=== PATIENT | male | born 1950 | race African-American/Black ===

== ENCOUNTER 2019-12-20 04:27 | Day surgery (SDC) | payer BC, OTHER ==
[2019-12-17 08:24] VITALS: BMI 24.3
[2019-12-20] MEDS ORDERED: MIDAZOLAM HCL 2 MG/2 ML SINGLE DOSE VIAL ONE (09:50)
--- NOTE | 2019-12-20 10:15 | OP ---
Operative Note - Note: Operative Date: 12/20/19 Pre-Operative Diagnosis: Left renal stone Operation: Left ESWL Findings: 5 mm mid pole Left renal stone Post-Operative Diagnosis: Same as Pre-op Surgeon: Ricco Howard Anesthesia: Regional Estimated Blood Loss (mls): 0 Operative Report Dictated: Yes
[2019-12-20 11:58] VITALS: BP 137/76; PULSE 46; TEMP 97.8
--- NOTE | 2019-12-20 19:05 | OP ---
DATE OF OPERATION: 12/20/2019 PREOPERATIVE DIAGNOSIS: Left renal stone. POSTOPERATIVE DIAGNOSIS: Left renal stone. PROCEDURE: Left extracorporeal shockwave lithotripsy. ATTENDING: Ngozi Howard M.D. ANESTHESIA: Fractional. DESCRIPTION OF PROCEDURE: Patient was brought in the operating room, placed in a supine position on the operating room table. Ultrasonography and fluoroscopy were performed. A 5-mm left mid pole stone was identified. Anesthesia and preoperative antibiotics were then administered. Shockwave lithotripsy was then started. 2500 impulses at 17 joules of power were administered to the stone under fluoroscopic and ultrasonographic visualization. Excellent fragmentation was noted. There were no complications noted. DISPOSITION: To recovery room. NGOZI BYRD M.D. [id number]
== END 2019-12-20 11:45 | disposition home or self-care (01) ==
LOC: JASU-SURG 04:27
PROVIDERS: ATTEND Urology
PROC: 0TF4XZZ Fragmentation in Left Kidney Pelvis, External Approach (ICD-10-PCS; principal; 2019-12-20 10:30)
DX: N20.0 Calculus of kidney (principal)